=== PATIENT | female | born 1995 | race African-American/Black ===

== ENCOUNTER 2019-02-26 14:52 | Inpatient (IN) | payer OTHER ==
--- NOTE | 2019-02-26 15:22 | ED ---
Psychiatric Complaint - HPI Summary HPI Summary: Patient is a 23-year-old -[place] [employer] student who presents to the emergency department today with suicidal ideation. She states at 10:00 this morning she attempted to overdose on aspirin but decided not to go through with it. She states she put a handful of aspirin her mouth and then spit them out before swallowing. After this she went to her counselor at school to tell her about this and her counselor sent her here via EMS and police for mental health evaluation. The patient states she has had an increase in anxiety and depression lately due to stressors at school. She states she lives at home and denies any recent alcohol or drug use. She states when she was younger" in high school" she had made self-harm gestures such as cutting herself. She currently takes no medications to manage her depression. She sees a counselor once a week which she says helps with her symptoms but her symptoms such as depression have gotten much worse in the last 2 weeks. Patient denies any physical pain, fever, chest pain, shortness breath, abdominal pain, pain with urination. - History Of Current Complaint Chief Complaint: EDSuicidal Time Seen by Provider: 02/26/19 15:22 Hx Obtained From: Patient Onset/Duration: Gradual Onset, Lasting Weeks Character: Depressed, Anxious Aggravating Factor(s): Nothing Alleviating Factor(s): Counseling Associated Signs And Symptoms: Positive: Sleep Disturbance, Appetite Change, Social Withdrawal Related History: Positive For: Prior Psychiatric Issues Has Suicidal: Reports: Thoughts, Demonstrates Gesture Ingestion History: Type/Name Of Drug - Patient states she placed a handful of aspirin in her mouth but spit, Amount Ingested - "Handful", Approximate Time Of Ingestion - 10:00 AM 02/26/2019 - Risk Factor(s) Completed Suicide Risk Factors: Living Alone, Unemployed - Allergies/Home Medications Allergies/Adverse Reactions: Allergies Allergy/AdvReac Type Severity Reaction Status Date / Time No Known Allergies Allergy Verified 02/26/19 15:15 Home Medications: Home Medications NK [No Home Medications Reported] 02/26/19 [History Confirmed 02/26/19] PMH/Surg Hx/FS Hx/Imm Hx Infectious Disease History: No Infectious Disease History: Denies: Traveled Outside the [place] in Last 30 Days - Social History Alcohol Use: Occasionally Substance Use Type: Reports: None Smoking Status (MU): Never Smoked Tobacco Review of Systems Constitutional: Negative Cardiovascular: Negative Respiratory: Negative Gastrointestinal: Negative Positive: Anxious, Depressed All Other Systems Reviewed And Are Negative: Yes Physical Exam Triage Information Reviewed: Yes Vital Signs On Initial Exam: Initial Vitals Temp Pulse Resp BP Pulse Ox 98.8 F 79 16 123/81 100 02/26/19 15:09 02/26/19 15:09 02/26/19 15:09 02/26/19 15:09 02/26/19 15:09 Vital Signs Reviewed: Yes Appearance: Positive: Well-Appearing, No Pain Distress, Well-Nourished, Obese Skin: Positive: Warm, Skin Color Reflects Adequate Perfusion Eyes: Positive: Normal ENT: Positive: Hearing grossly normal Respiratory/Lung Sounds: Positive: Clear to Auscultation, Breath Sounds Present Cardiovascular: Positive: Normal, RRR, S1, S2 Psychiatric: Positive: Normal AVPU Assessment: Alert Procedures - Sedation Patient Received Moderate/Deep Sedation with Procedure: No Diagnostics - Vital Signs Vital Signs Temp Pulse Resp BP Pulse Ox 02/26/19 15:09 98.8 F 79 16 123/81 100 - Laboratory Result Diagrams: 02/26/19 15:58 02/26/19 15:58 Lab Statement: Any lab studies that have been ordered have been reviewed, and results considered in the medical decision making process. Course/Dx - Course Course Of Treatment: Patient was evaluated in the emergency department for suicidal ideation under a 945 form. Upon arrival to the emergency department the patient was met by staff and placed into a middleton bed and put under constant observation. The patient was change in the hospital scrubs. The patient was seen and evaluated. Laboratory studies including urinalysis and toxicology screening were ordered to investigate any acute medical changes including salicylate toxicity due to the patient's chief complaint. These laboratory studies resulted as within normal limits including a negative salicylate toxicology report. The patient was medically cleared and evaluated by psychiatric services. - Differential Dx/Clinical Impression Differential Diagnosis/HQI/PQRI: Positive: Anxiety, Drug Overdose/Intentional - Aspirin, Suicidal Ideation - Without a plan, Suicidal Gesture Provider Diagnosis: Suicidal ideation Discharge ED - Sign-Out/Discharge Documenting (check all that apply): Sign-Out Patient Signing out patient TO: Deni Ambrosio - [id number] Receiving patient FROM: Thomas Moise - Discharge Plan Condition: Good Disposition: [facility]CHIATRIC FACILITY[facility] - Billing Disposition and Condition Condition: GOOD Disposition: Psychiatric Facility [facility]
[2019-02-26 15:41] LABS: Urine Appearance Turbid; Urine Bilirubin Negative (Negative); Urine Blood Negative (Negative); Urine Color Yellow; Urine Glucose Negative (Negative); Urine Ketones Negative (Negative); Urine Nitrite Negative (Negative); Urine Protein Negative (Negative); Urine Specific Gravity 1.023 (1.010-1.030); Urine Urobilinogen Negative (Negative)
[2019-02-26 16:14] LABS: ABS Basophils 0.1 10^3/ul (0-0.2); ABS Eosinophils 0.1 10^3/ul (0-0.6); ABS Monocytes 0.5 10^3/ul (0-0.8); ABS Neutrophils 6.2 10^3/ul (1.5-7.7); Eosinophil % 1.4 %; Hematocrit 38 % (35-47); Hemoglobin 12.2 g/dL (12.0-16.0); Lymphocyte % 30.1 %; Mean Corpuscular HGB Conc 32 g/dL (31-36); Mean Corpuscular Hemoglobin 27 pg (27-31); Mean Corpuscular Volume 83 fL (80-97); Mean Platelet Volume 9.2 fL (7.4-10.4); Nucleated Red Blood Cells % 0.1; Platelet Count 200 10^3/uL (150-450); Red Blood Count 4.55 10^6 /uL (3.70-4.87); Red Cell Distribution Width 14 % (10-15); White Blood Count 9.8 10^3/uL (3.5-10.8)
[2019-02-26 16:22] LABS: Urine Benzodiazepine Screen None Detected (None Detect); Urine Opiates Screen None Detected (None Detect)
[2019-02-26 16:50] LABS: ALT 14 U/L (7-52); AST 19 U/L (13-39); Albumin 4.2 g/dL (3.2-5.2); Albumin/Globulin Ratio 1.4 (1-3); Alkaline Phosphatase 62 U/L (34-104); Anion Gap 6 mmol/L (2-11); BUN/Creatinine Ratio 14.5 (8-20); Blood Urea Nitrogen 12 mg/dL (6-24); CO2 Carbon Dioxide 26 mmol/L (22-32); Calcium 9.8 mg/dL (8.6-10.3); Chloride 105 mmol/L (101-111); EGFR African American 103.1 (>60); EGFR Non-African American 85.2 (>60); Globulin 2.9 g/dL (2-4); Glucose 88 mg/dL (70-100); Potassium 4.3 mmol/L (3.5-5.0); Sodium 137 mmol/L (135-145); Total Protein 7.1 g/dL (6.4-8.9)
[2019-02-26 16:59] LABS: Acetaminophen < 15 mcg/mL; Alcohol < 10 mg/dL (<10); Salicylate < 2.50 mg/dL (<30)
[2019-02-26 17:12] LABS: TSH (Thyroid Stimulating Horm) 1.37 mcIU/mL (0.34-5.60)
[2019-02-27] MEDS ORDERED: Acetaminophen TAB* 325 MG ONE (00:14)
--- NOTE | 2019-02-27 01:49 | PN ---
Progress Note - Progress Note Date of Service: 02/27/19 Note: Patient signed out to nm by Thomas PONCE pending mental health evaluation and disposition. Patient admitted to [facility] in stable condition with diagnosis of suicidal ideation and depression.
[2019-02-27] MEDS ORDERED: Al Hydrox/Mg Hydrox/Simet LIQ* 30 ML UDC PO PRN (03:46)
[2019-02-27] MEDS ORDERED: Acetaminophen TAB* 325 MG PO PRN (03:46)
[2019-02-27] MEDS: Vitamin THERAPEUTIC TAB PO SCH (09:56)
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
[2019-02-27] MEDS ORDERED: Ibuprofen TAB* 400 MG ONE (10:56)
[2019-02-27] MEDS: Ibuprofen TAB* 400 MG PO PRN (10:57)
[2019-02-27 11:00] LABS: HCG Pregnancy < 0.60 mIU/mL
[2019-02-27] MEDS ORDERED: Albuterol HFA INHALER* 8 gm MDI INH PRN (11:46)
[2019-02-27] MEDS: Lisdexamfetamine(NF) 10 MG CAP PO SCH (12:29)
[2019-02-27] MEDS: Cetirizine* 10 MG TAB PO SCH (12:29)
[2019-02-28] MEDS: Cetirizine* 10 MG TAB PO SCH (09:00)
[2019-02-28] MEDS: Lisdexamfetamine(NF) 10 MG CAP PO SCH (09:01)
[2019-02-28] MEDS: Vitamin THERAPEUTIC TAB PO SCH (09:01)
--- NOTE | 2019-02-28 15:24 | PN ---
Subjective - Subjective Date of Service: 02/28/19 Service Type: 66499 Hosp care 35 min high complexity Subjective: Nursing Report: Patient was visible on unit, no behavioral incidents. Slept overnight. Attending group activities. CC: "I am doing better Patient was seen and evaluated today in the common room. The patient reported she feels safe on the unit and is interacting with peers. She reported having adequate appetite and sleep. The patient reports attending and participating in day groups. Per nursing no behavioral issues or overnight events reported. Patient reported that she is tolerating medications without side effects. Objective - General Observations Appearance: Neat Appears Stated Age: Yes Stature: WNL Posture: WNL Eye Contact: Average - Interaction Observations Attitude Towards Examiner: Cooperative Stated Mood: Dysphoric Affect: Full Speech Pattern/Tone: Clear Thought Process: Coherent Perception: WNL Thought Content: WNL Hallucination Type: None Delusion Type: None - Cognitive Function Orientation: A&O x 4 Level of Consciousness: Awake Cognition: WNL - Medication Compliance Cooperative with Inpatient Medication Regimen: Yes - Group Participation Participates in Group Activities: Yes Assessment - Assessment Merits Inpatient Hospitalization: For Immediate Safety Clinical Impression: 23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 Plan - Plan Treatment Plan: Name: FROILAN ARANA Birthdate: 1995 [id number] Plan #Q30 minute observation with staff pass. Patient shows improvement in mood and consistent affect. # The patient requires psychiatric inpatient admission at this time to assure safety, receive treatment and work toward stabilization. # EKG normal # Continue Vyvanse 20mg daily for binge eating disorder. Denied pre existing cardiac problems and denied family history of sudden or cardiac problems. # Patient plans to call her parents # CAR PARK ATTENDANT [place] was checked and no other controlled substances were listed. # B-HCG was ordered and results are negative. # Obtain collateral information once release is signed. # Collaboration with Social Work #Goals before discharge include: To eliminate/ reduce suicidal ideation Tentative Discharge: Tomorrow The risks, benefits, and alternative treatment options were discussed as well as the risks of refusing treatment. After this discussion and an acknowledgement of this understanding was made. A risk/ benefit assessment of treatment was considered and discussed with the patient. When comparing the risks of treatment with the dangers of not receiving treatment, the benefits of treatment outweigh the treatment risks at this time. Risks of allergy, suicidal ideation, behavioral changes, dystonia, rashes, electrolyte imbalances, movement disorders, cardiac conduction changes, serotonin syndrome, metabolic risks were among some of the risks discussed. Continued Medication Management: Continue Outpt Medication Medications: Current Medications Al Hydrox/Mg Hydrox/Simethicone (Maalox Plus*) 30 ml PO Q4H PRN PRN Reason: INDIGESTION Albuterol (Ventolin Hfa Inhaler*) 1 puff INH Q6H PRN PRN Reason: SOB/WHEEZING Cetirizine HCl (Zyrtec*) 10 mg PO DAILY [facility] Last Admin: 02/28/19 09:00 Dose: 10 mg Ibuprofen (Motrin Tab*) 400 mg PO Q6H PRN PRN Reason: HEADACHE Last Admin: 02/27/19 10:57 Dose: 400 mg Lisdexamfetamine Dimesylate (Vyvanse(Nf)) 20 mg PO DAILY [facility] Last Admin: 02/28/19 09:01 Dose: 20 mg Multivitamins (Theragran Tab*) 1 tab PO DAILY [facility] Last Admin: 02/28/19 09:01 Dose: 1 tab - Discharge Plan Discharge Plan: Inpatient Hospitalization
[2019-02-28] MEDS: Ibuprofen TAB* 400 MG PO PRN (15:54)
[2019-03-01 08:37] LABS: HDL Cholesterol 52.4 mg/dL
[2019-03-01] MEDS: Lisdexamfetamine(NF) 10 MG CAP PO SCH (09:17)
[2019-03-01] MEDS: Vitamin THERAPEUTIC TAB PO SCH (09:17)
[2019-03-01] MEDS: Cetirizine* 10 MG TAB PO SCH (09:17)
[2019-03-01] MEDS: Ibuprofen TAB* 400 MG PO PRN (09:22)
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
[2019-03-01 11:27] VITALS: BP 130/73
== END 2019-03-01 13:15 | disposition home or self-care (01) | DRG 881 ==
LOC: ED 14:52 → BSU 22:45
PROVIDERS: ADMIT Psychiatry & Neurology Psychiatry; ATTEND Psychiatry & Neurology Psychiatry
DX: F32.9 Major depressive disorder, single episode, unspecified (principal); R45.851 Suicidal ideations; F50.81 Binge eating disorder; E66.9 Obesity, unspecified; J45.909 Unspecified asthma, uncomplicated; E28.2 Polycystic ovarian syndrome; R51 Headache; Z68.33 Body mass index [BMI] 33.0-33.9, adult; Z72.89 Other problems related to lifestyle; Z91.5 Personal history of self-harm; Z79.899 Other long term (current) drug therapy; X83.8XXA Intentional self-harm by other specified means, initial encounter; Y92.009 Unspecified place in unspecified non-institutional (private) residence as the place of occurrence of the external cause
CPT/HCPCS: 36415; 80053; 80061; 80307; 80320; 80329; 81003; 83036; 84443; 84702; 85025; 93005; 99222; 99233; 99238; 99284; A9270-GY; G0480

== ENCOUNTER 2020-05-01 16:48 | Inpatient (IN) ==
[2020-05-01 18:00] LABS: ABS Basophils 0.1 10^3/ul (0-0.2); ABS Lymphocytes 3.2 10^3/ul (1.0-4.8); ABS Monocytes 0.5 10^3/ul (0-0.8); ABS Neutrophils 6.7 10^3/ul (1.5-7.7); Eosinophil % 0.5 %; Hematocrit 38 % (35-47); Hemoglobin 12.3 g/dL (12.0-16.0); Lymphocyte % 30.5 %; Mean Corpuscular HGB Conc 32 g/dL (31-36); Mean Corpuscular Hemoglobin 25 pg (27-31); Mean Corpuscular Volume 79 fL (80-97); Mean Platelet Volume 9.2 fL (7.4-10.4); Platelet Count 278 10^3/uL (150-450); Red Blood Count 4.87 10^6 /uL (3.70-4.87); Red Cell Distribution Width 16 % (10-15); White Blood Count 10.5 10^3/uL (3.5-10.8)
[2020-05-01 18:17] LABS: ALT 16 U/L (7-52); AST 17 U/L (13-39); Albumin 4.4 g/dL (3.2-5.2); Albumin/Globulin Ratio 1.3 (1-3); Alkaline Phosphatase 70 U/L (34-104); Anion Gap 7 mmol/L (2-11); BUN/Creatinine Ratio 18.1 (8-20); Blood Urea Nitrogen 15 mg/dL (6-24); CO2 Carbon Dioxide 24 mmol/L (22-32); Calcium 10.3 mg/dL (8.6-10.3); Chloride 106 mmol/L (101-111); EGFR African American 102.2 (>60); EGFR Non-African American 84.5 (>60); Globulin 3.3 g/dL (2-4); Glucose 95 mg/dL (70-100); Potassium 4.1 mmol/L (3.5-5.0); Sodium 137 mmol/L (135-145); Total Protein 7.7 g/dL (6.4-8.9)
[2020-05-01 18:23] LABS: HCG Pregnancy < 0.60 mIU/mL
[2020-05-01 19:00] LABS: Acetaminophen < 15 mcg/mL; Alcohol, S < 10 mg/dL (<10); Salicylate < 2.50 mg/dL (<30)
[2020-05-01 20:57] LABS: Urine Appearance Cloudy; Urine Bilirubin Negative (Negative); Urine Blood Negative (Negative); Urine Color Yellow; Urine Glucose Negative (Negative); Urine Ketones Trace (Negative); Urine Nitrite Negative (Negative); Urine Protein Negative (Negative); Urine Specific Gravity 1.027 (1.010-1.030); Urine Urobilinogen Negative (Negative)
[2020-05-01 21:03] LABS: Urine Bacteria 1+ (Absent); Urine Red Blood Cell Trace(0-2/hpf) (Absent); Urine Squamous Epithelial Cell Present (Absent); Urine White Blood Cell Trace(0-5/hpf) (Absent)
[2020-05-01 21:11] LABS: Urine Benzodiazepine Screen None Detected (None Detect); Urine Cannabinoids Screen None Detected (None Detect); Urine Opiates Screen None Detected (None Detect)
[2020-05-01 22:53] LABS: HIV 4th Generation Nonreactive (Nonreactive)
[2020-05-02] MEDS ORDERED: Al Hydrox/Mg Hydrox/Simet LIQ 30 ML UDC PO PRN (02:22)
[2020-05-02] MEDS: Vitamin THERAPEUTIC TAB PO SCH (09:51)
[2020-05-03 08:12] LABS: HDL Cholesterol 45.4 mg/dL
[2020-05-03] MEDS: Vitamin THERAPEUTIC TAB PO SCH (09:20)
[2020-05-04] MEDS: Vitamin THERAPEUTIC TAB PO SCH (09:06)
[2020-05-05] MEDS: Vitamin THERAPEUTIC TAB PO SCH (09:10)
[2020-05-06 09:10] VITALS: BP 124/70
[2020-05-06] MEDS: Vitamin THERAPEUTIC TAB PO SCH (09:18)
== END 2020-05-06 14:29 | disposition home or self-care (01) | DRG 881 ==
LOC: ED 16:48 → BSU 05-02 02:42
PROVIDERS: ADMIT Psychiatry & Neurology Psychiatry; ATTEND Psychiatry & Neurology Psychiatry